=== PATIENT | female | born 1995 | race Caucasian/White ===

== ENCOUNTER 2020-01-12 10:40 | Observation (INO) | payer OTHER, MEDICAID, SELFPAY ==
[2020-01-12] VITALS (19 sets, daily range): BP systolic 91–160; BP diastolic 56–89; PULSE 67–108; RESP 12–22; TEMP 36.2–37.4; O2SAT 92–100; BMI 52.9
--- NOTE | 2020-01-12 11:24 | ED_ITS ---
HPI - Skin/Abscess/Foreign Bdy General Chief complaint: Skin/Abscess/Foreign Body Stated complaint: cyst, left side sent by doc Time Seen by Provider: 01/12/20 10:50 Source: patient Mode of arrival: Ambulatory Limitations: no limitations History of Present Illness HPI narrative: 24F nonsmoker asthma patient presents with the chief complaint of a painful red, swollen mass under her left axilla which has been present for the past few days. She denies any fever or shaking chills. She denies any history of prior skin infections. She was seen and evaluated as an outpatient and had an ultrasound demonstrating what appeared to be an abscess within atypical central core. She was at her primary care provider's office who then consulted with our on-call general surgeon and was instructed to present to the emergency department for evaluation. Her pain is worse with motion and improves with rest. She denies other symptoms and is otherwise well and free of complaint MD complaint: abscess/boil Onset (ago): day(s) Tetanus up to date: yes Location: chest Severity: moderate Quality: aching Pain Consistency: constant Relieving factors: none Exacerbating factors: palpation Context: none Associated symptoms: denies other symptoms Treatments prior to arrival: antibiotic Related Data Home Medications Medication Instructions Recorded Confirmed PNV cmb#95-ferrous fumarate-FA 1 tab PO DAILY 01/12/20 01/12/20 [] albuterol sulfate 1 inh INHALATION PRN PRN 01/12/20 01/12/20 doxycycline hyclate 100 mg PO BID 01/12/20 01/12/20 Allergies Allergy/AdvReac Type Severity Reaction Status Date / Time latex Allergy Verified 01/12/20 11:10 oxycodone Allergy Dizziness Verified 01/12/20 11:10 Sulfa (Sulfonamide Allergy Rash Verified 01/12/20 11:10 Antibiotics) Review of Systems Constitutional Constitutional: Denies chills, Denies fatigue, Denies fever(s), Denies frequent falls, Denies lethargy and Denies weakness Eyes Eyes: Denies change in vision, Denies eye discharge, Denies irritation and Denies loss of vision ENT Ears, Nose, Mouth, and Throat: Denies change in voice, Denies dizziness, Denies neck pain, Denies sore throat and Denies throat swelling Cardiovascular Cardiovascular: Denies chest pain, Denies irregular heart rhythm, Denies lightheadedness, Denies palpitations, Denies dyspnea, Denies dyspnea on exertion and Denies orthopnea Respiratory Respiratory: Denies cough, Denies dyspnea, Denies dyspnea on exertion and Denies wheezing Gastrointestinal Gastrointestinal: Denies abdominal pain, Denies change in bowel habits, Denies diarrhea, Denies nausea and Denies vomiting Genitourinary Genitourinary: Denies hematuria, Denies flank pain, Denies urinary incontinence and Denies urinary urgency Musculoskeletal Musculoskeletal: Denies back pain, Denies muscle weakness, Denies neck pain, Denies numbness and Denies tingling Integumentary/Breasts Skin/Breast: Denies pruritus, Reports erythema, Denies rash, Reports skin pain, Reports skin swelling and Denies wounds Neurologic Neurologic: Denies behavioral changes, Denies confusion, Denies dizziness, Denies frequent falls, Denies loss of vision, Denies numbness, Denies tingling and Denies weakness Psychiatric Psychiatric: Denies anxiety, Denies behavioral changes, Denies confusion, Denies depression, Denies homicidal ideation and Denies suicidal ideation Endocrine Endocrine: Denies fatigue, Denies flushing and Denies palpitations Hematologic/Lymphatic Hematologic/Lymphatic: Denies easy bruising Allergic/Immunologic Allergic/Immunologic: Denies urticaria, Denies throat swelling and Denies wheezing Patient History Social History household members: family Smoking Status: Never smoker alcohol intake: never Smoking Status: Never smoker alcohol intake frequency: holidays/special occasions only Substance Use Type: does not use Exam Narrative Exam Narrative: GENERAL: [24] year old patient appears stated age. Well-nou rished, well-developed patient, in mild distress. Anxious HEAD: Atraumatic. Normocephalic. EYES: Pupils equal round and reactive. Extraocular motions intact. No scleral icterus. No injection or drainage. ENT: Nose without bleeding, purulent drainage. Throat without erythema, tonsillar hypertrophy or exudate. Airway patent. NECK: Trachea midline. Non tender CARDIOVASCULAR: Regular rate and rhythm without murmurs, gallops, or rubs. RESPIRATORY: Clear to auscultation. Breath sounds equal bilaterally. No wheezes, rales, or rhonchi. GASTROINTESTINAL: Abdomen soft, non-tender, nondistended. EXTREMITIES: No edema or joint tenderness. BACK: Nontender without deformity or crepitance. No flank tenderness. NEURO: AOx3. SKIN: 2-3 inch erythematous, tender, warm mass with fluctuance in left axilla consistent with abscess. Otherwise, No rash or erythema of visible areas Initial Vital Signs Initial Vital Signs: Vital Signs Temperature 98.4 F 01/12/20 11:05 Pulse Rate 99 H 01/12/20 11:05 Respiratory Rate 18 01/12/20 11:05 Blood Pressure 160/89 H 01/12/20 11:05 Pulse Oximetry 98 01/12/20 11:05 Course Course Course Narrative: Discussion with General surgery early in the evaluation of this case, she was already aware of this patient and plans to see her in the emergency department and taker to the OR for incision and drainage later tonight Orders Ordered: ED Orders 01/12/20 11:35 Basic Metabolic Panel Stat Complete Blood Count AUTO DIFF Stat Lactate (Lactic Acid) Stat 01/12/20 11:50 Blood Culture Stat Albuterol (Ventolin Hfa) 1 puff INH PRN PRN PRN Reason: Shortness Of Breath Albuterol (Ventolin) 2.5 mg INH NOW PRN PRN Reason: Coughing, Wheezing, Dyspnea Fentanyl (Sublimaze) 0 mcg IV Q5MIN PRN PRN Reason: Pain, Severe (7-10) Hydromorphone HCl (Dilaudid) 0 mg IV Q5MIN PRN PRN Reason: Pain, Mild (1-3) Lactated Ringer's (Lactated Ringers) 1,000 mls @ 150 mls/hr IV CONT DAVON Last Admin: 01/12/20 18:03 Dose: 150 mls/hr Documented by: Infusion: 01/12/20 18:03 Dose: 150 mls/hr Documented by: Infusion: 01/12/20 15:44 Dose: 150 mls/hr Documented by: Admin: 01/12/20 13:16 Dose: 150 mls/hr Documented by: SID Lactated Ringer's (Lactated Ringers) 1,000 mls @ 42 mls/hr IV CONT DAVON Lactated Ringer's (Lactated Ringers) 1,000 mls @ 120 mls/hr IV CONT DAVON Ondansetron HCl (Zofran) 4 mg IV NOW PRN PRN Reason: Nausea And Vomiting Discontinued Medications Acetaminophen (Tylenol) 975 mg PO NOW ONE Stop: 01/12/20 17:36 Last Admin: 01/12/20 18:07 Dose: 975 mg Documented by: ARASH Celecoxib (Celebrex) 400 mg PO NOW ONE Stop: 01/12/20 17:36 Last Admin: 01/12/20 18:08 Dose: 400 mg Documented by: ARASH Gabapentin (Neurontin) 300 mg PO NOW ONE Stop: 01/12/20 17:36 Last Admin: 01/12/20 18:08 Dose: 300 mg Documented by: ARASH Vancomycin HCl/Dextrose (Vancomycin) 2,000 mg in 400 mls @ 200 mls/hr IV NOW ONE Stop: 01/12/20 15:01 Last Infusion: 01/12/20 15:44 Dose: 100 mls/hr Documented by: Infusion: 01/12/20 14:15 Dose: 100 mls/hr Documented by: Admin: 01/12/20 13:17 Dose: 200 mls/hr Documented by: SID Scopolamine (Transderm-Scop) 1 patch TOP NOW ONE Stop: 01/12/20 17:36 Last Admin: 01/12/20 18:08 Dose: 1 patch Documented by: ARASH Vital Signs Vital signs: Vital Signs - 8 hr 01/12/20 12:05 01/12/20 13:00 01/12/20 13:30 Pulse Rate 88 67 90 Respiratory Rate 18 20 21 Blood Pressure [Left Wrist] 148/82 H 133/73 132/77 Pulse Oximetry 98 94 98 MDM - Skin/Abscess/Foreign Bdy Lab Data Result diagrams: 01/12/20 11:35 01/12/20 11:35 Labs: Lab Results 01/12/20 01/12/20 01/12/20 Range/Units 11:35 11:35 11:35 WBC 7.9 (4.5-11.0) X10^3/uL RBC 4.84 (4.0-5.2) X10^6/uL Hgb 14.6 (12.0-16.0) g/dL Hct 42.5 (36-46) % MCV 87.7 (80-100) fL MCH 30.2 (26-34) PG MCHC 34.4 (30-36) % RDW 12.4 (11.6-14.8) % Plt Count 244 (150-400) X10^3/uL Neut % (Auto) 71.3 (50-75) % Lymph % (Auto) 22.0 L (25-40) % [place] % (Auto) 5.0 (3-14) % Eos % (Auto) 1.3 L (2-4) % Baso % (Auto) 0.4 (0-2) % Neut # (Auto) 5600 (7236-0233) /uL Lymph # (Auto) 1700 (4741-9552) /uL [place] # (Auto) 400 (0-900) /uL Eos # (Auto) 100 (0-450) /uL Baso # (Auto) 0 (0-100) /uL Sodium 142 (137-145) mmol/L Potassium 3.9 (3.4-5.1) mmol/L Chloride 104 (98-107) mmol/L Carbon Dioxide 27 (22-32) mmol/L BUN 14 (7-17) mg/dL Creatinine 0.70 (0.52-1.04) mg/dL Estimated GFR > 60.0 (>60) mL/min BUN/Creatinine Ratio 20.0 (6-22) Glucose 106 H (70-100) mg/dL Lactate 1.0 (0.7-2.1) mmol/L Calcium 10.1 (8.4-10.2) mg/dL Point of Care Testing Test Results Negative Urine Dip Bedside Urine Glucose Negative Bedside Urine Bilirubin - Negative Bedside Urine Ketone - Negative Urine Specific [place] 1.010 Bedside Urine Occult Blood +/- Bedside Urine pH 6.5 Bedside Urine Urobilinogen - Negative Bedside Urine Nitrite - Negative Bedside Urine Leukocytes - Negative Esterase Discharge Plan Departure Patient Disposition: Admitted as Observation Clinical Impression: Abscess of axilla Discharge Date/Time: 01/12/20 15:43 Admit Date/Time: 01/12/20 13:35 Admit Provider: Marian Ariza
[2020-01-12 11:51] LABS: Add Manual Diff / Slide Review NO; Basophils Absolute Auto 0 /uL (0-100); Basophils Percent Auto 0.4 % (0-2); Eosinophils Absolute Auto 100 /uL (0-450); Eosinophils Percent Auto 1.3 % (2-4); Hematocrit 42.5 % (36-46); Hemoglobin 14.6 g/dL (12.0-16.0); Lymphocytes Absolute Auto 1700 /uL (1100-4500); Mean Corpuscular HGB Conc 34.4 % (30-36); Mean Corpuscular Hemoglobin 30.2 PG (26-34); Mean Corpuscular Volume 87.7 fL (80-100); Monocytes Absolute Auto 400 /uL (0-900); Neutrophils Absolute Auto 5600 /uL (1500-7000); Neutrophils Percent Auto 71.3 % (50-75); Platelet Count 244 X10^3/uL (150-400); Red Blood Cell Count 4.84 X10^6/uL (4.0-5.2); Red Cell Distribution Width 12.4 % (11.6-14.8); White Blood Cell Count 7.9 X10^3/uL (4.5-11.0)
[2020-01-12 12:06] LABS: Blood Urea Nitrogen 14 mg/dL (7-17); Calcium 10.1 mg/dL (8.4-10.2); Carbon Dioxide 27 mmol/L (22-32); Chloride 104 mmol/L (98-107); Estimated Glomerular Filt Rate > 60.0 mL/min (>60); Glucose 106 mg/dL (70-100); HEMOLYSIS < 15 (0-50); Potassium 3.9 mmol/L (3.4-5.1); Sodium 142 mmol/L (137-145)
--- NOTE | 2020-01-12 12:54 | P.HP_ITS ---
History of Present Illness History of Present Illness Date Patient Seen: 01/12/20 Time Patient Seen: 12:55 Chief complaint: cyst, left side sent by doc Narrative: This is a 24 yo woman with morbid obesity, POTS syndrome, history of appendectomy and c section, presents with one week of left axillary cellulitis and abscess. The patient says it started as a small bump, like a pimple. She says she gets these sometimes, but this one became larger quickly and swelled into a lump. US from OSH showed a fluid collection with debris in it. The patient got a shot of Rocephin at her doctor's office two days ago, and has been on Doxycycline for the past two days. They duarte a line around the cellulitis on Wednesday. It increased on , but has begun to recede today. The cyst is still large and tender, with surrounding erythema and ecchymoses. The patient denies fevers, nausea, vomiting. She is feeling a bit light headed, as she tends to when she is dehydrated. ROS: As per HPI; Thirteen system review is otherwise negative other than as mentioned below and in HPI. PE: GENERAL: Alert, comfortable, morbidly obese. Appears stated age. Answers que stions promptly and appropriately. Vital signs noted. HENT: Normocephalic, atraumatic. Hearing intact. Oral mucosa is pink and moist. EYES: Conjunctiva pink, sclera white, no periorbital swelling. CARDIOVASCULAR: Regular rate. No pedal edema. RESPIRATORY: Non-tachypneic, breathing comfortably on room air. GASTROINTESTINAL: Abdomen soft and non-distended Left axilla: 4cm x 4cm tender fluctuant mass with overlying erythema and ecchymoses GENITALURINARY: No flank tenderness. MUSCULOSKELETAL: Equal tone and mass bilaterally. SKIN: Warm, dry, soft, appropriate color for ethnicity. No other lesions, rashes, or wounds. NEURO: Alert and Oriented X 3. No gross sensory deficits, or cognitive issues. PSYCH: Appropriate affect and mood. Patient History Family & Social History Safety & Behavioral: Feels Safe in Current Yes Environment Tobacco & Substance use: Smoking Status Never smoker alcohol intake frequency holiday/special occasion Substance Use Type does not use Meds Home Medications and Allergies Home Medications Medication Instructions Recorded Confirmed Type PNV cmb#95-ferrous fumarate-FA 1 tab PO DAILY 01/12/20 01/12/20 History [] albuterol sulfate 1 inh INHALATION PRN PRN 01/12/20 01/12/20 History doxycycline hyclate 100 mg PO BID 01/12/20 01/12/20 History Allergies Allergy/AdvReac Type Severity Reaction Status Date / Time latex Allergy Verified 01/12/20 11:10 oxycodone Allergy Dizziness Verified 01/12/20 11:10 Sulfa (Sulfonamide Allergy Rash Verified 01/12/20 11:10 Antibiotics) Exam Vital Signs (past 8 hours): - 01/12/20 11:05 01/12/20 12:05 Temperature 98.4 F Pulse Rate 99 H 88 Respiratory Rate 18 18 Blood Pressure 160/89 H Blood Pressure [Left Wrist] 148/82 H Pulse Oximetry 98 98 Oxygen Delivery Method Room Air Objective Imaging US: Radiologist's impression: 3 x 3 x 1cm fluid collection with solid debris in it Labs Result Diagrams: 01/12/20 11:35 01/12/20 11:35 Labs: Laboratory Results - last 24 hr 01/12/20 01/12/20 01/12/20 11:35 11:35 11:35 WBC 7.9 RBC 4.84 Hgb 14.6 Hct 42.5 MCV 87.7 MCH 30.2 MCHC 34.4 RDW 12.4 Plt Count 244 Neut % (Auto) 71.3 Lymph % (Auto) 22.0 L [place] % (Auto) 5.0 Eos % (Auto) 1.3 L Baso % (Auto) 0.4 Neut # (Auto) 5600 Lymph # (Auto) 1700 [place] # (Auto) 400 Eos # (Auto) 100 Baso # (Auto) 0 Sodium 142 Potassium 3.9 Chloride 104 Carbon Dioxide 27 BUN 14 Creatinine 0.70 Estimated GFR > 60.0 BUN/Creatinine Ratio 20.0 Glucose 106 H Lactate 1.0 Calcium 10.1 Assessment & Plan Assessment and plan (1) Morbid obesity: Current visit: Yes Status: Acute (2) Axillary abscess: Current visit: Yes Status: Acute (3) Asthma: Problem details: Continue home inhaler; pt has suspected AUGUSTO, but has not been able to do sleep study due to having a young child. Current visit: Yes Status: Acute Assessment & Plan narrative: This is a 24 yo with POTS, morbid obesity, asthma, and a left axillary abscess. We will plan to I and D it in the OR this afternoon. Risks and benefits of the procedure were discussed including risk of bleeding, infection, damage to nearby structures, prolonged healing, need for wound care and packing, need for additional procedures. Plan: NPO IV fluids IV Vanc OR for I and D this PM
[2020-01-12] MEDS: LACTATED RINGERS 1,000 ML 150 ML IV ×2 (13:16→18:03)
[2020-01-12] MEDS: VANCOMYCIN 2,000 MG/400 ML PIGGYBACK 200 MG IV (13:17)
--- NOTE | 2020-01-12 14:14 | PC.NURSE ---
Pt called saying she was having itchy scalp from IV meds, assessed pt, no rash or discoloration noted. Dr. Sears aware, no new orders recieved.
[2020-01-12] MEDS: ACETAMINOPHEN 325 MG TABLET 975 MG PO (18:07)
[2020-01-12] MEDS: CELECOXIB 200 MG CAPSULE 400 MG PO (18:08)
[2020-01-12] MEDS: GABAPENTIN 300 MG CAPSULE PO (18:08)
[2020-01-12] MEDS: SCOPOLAMINE 1 PATCH TOP (18:08)
[2020-01-12] MEDS: BUPIVACAINE 0.25% W/ EPI 30 ML VIAL INJ (19:06)
--- NOTE | 2020-01-12 19:07 | SUR.OPER ---
Supine on padded OR bed, head on pillow, arms secured on padded arm boards at <90 degrees abduction, legs uncrossed, safety belt at thigh, tape over blanket over lower legs.
--- NOTE | 2020-01-12 19:32 | PM.OP.1 ---
Operative Date/Time/Diagnoses Date of procedure: 01/12/20 Time of procedure: 19:33 Pre-op diagnosis: Left axillary abscess Post-op diagnosis: same Procedure & Clinicians Procedure: Incision and debridement of left axillary abscess Same procedure as scheduled: Yes Indications: Left axillary abscess Surgeon: Marian Ariza Click Yes if Unassisted: Yes Anesthesia Type: General Operative Notes Findings: Copious purulent material with some solid material sent for culture; abscess cavity 3cm x 4cm Closure Type: primary (Nylon suture, skin closed over sergio drain) Specimen(s): other (Abscess fluid, tissue for culture) Estimated Blood Loss (mL): 1 Blood products transfused: none Procedure in detail: The patient was brought into the operating room, and placed supine on the OR table. Sequential compression devices were placed on both legs and turned on. Appropriate pre operative antibiotic was given. General anesthesia was induced and the patient was intubated with an LMA by Dr. Donnelly. The left axilla and chest wall were prepped and draped in sterile fashion. Surgical time out was completed. Local anesthetic was given in the skin overlying the abscess, and a 6cm transverse incision was made with a 15 blade in the anesthetized area. Copious purulent fluid poured out and was cultured. The abscess cavity was explored, and was found to be about 3cm x 4cm x 2cm deep. The lining of the cavity and some solid material from within the abscess were sent for tissue culture. The abscess cavity was then irrigated and the remaining sloughed lining was debrided until clean, well perfused fat tissue was seen. Hemostasis was established using cautery and pressure. Additional local anesthetic was injected into the skin and subcutaneous fat. 3-0 Nylon suture was used to close the skin loosely over a 1/4 inch sergio drain. 4x4 gauze and paper tape were used to cover the wound and secure the dressing in place. Needle, sponge and instrument counts were correct at the end of the procedure. The patient tolerated the procedure well. She was then awakened from anesthesia and extubated. She was transferred to PACU in stable condition. Post op debriefing was conducted. Complications: none Post-operative Condition: stable Disposition: PACU
[2020-01-12] MEDS: ALBUTEROL 2.5 MG/3 ML NEB (ADULT) INH (19:33)
--- NOTE | 2020-01-12 19:34 | SUR.PHASEI ---
Patient reported chest heaviness and pain. Dr. Donnelly notified. Albuterol neb started per .
--- NOTE | 2020-01-12 19:42 | PC.NURSE ---
Addendum entered by Hanna Orona R.N. 01/12/20 23:56: Pt reports h/o anxiety with prescribed med pt states has not yet taken. Pt expresses anxiety re blood clots, small bubbles in iv tubing, states this is first night away from toddler as spouse is rooming in with pt. Pt does state feels chest heaviness could be anxiety. Pt reports pain well controlled left axilla. Taking oral foods and fluids well. Has voided in bathroom with MEMORIAL DESIGNER assistance. Pt does report after discussion with this headline writer and reassurance re expressed concerns, chest heaviness improved. Vital signs remain stable as recorded. IV Vanco infusing as ordered. Addendum entered by Hanna Orona R.N. 01/12/20 20:30: Per report from [employer], pt experienced chest pain in PACU and anesthesia was made aware. Pt received albuterol treatment with improvement. Pt admits to same upon arrival to floor. Rates chest and left axilla pain 3-4/10. Ice to left axilla with bulky dressing dry and intact. Pt's room air sats 96%. Elevated head of bed and pt provided with food and fluids as per request. Toradol to manage pain. Pt has scopolamine patch behind right ear. Admits to slight dizziness, but denies nausea. Original Note: Pt to room 209 from E.R. @ beginning of shift. Awake, alert, conversant, Admission assessment completed by joanie RN, Abby. Pt removes jewelry and hands to spouse prior to leaving for surgery @ 1730. Pt has large extended family present in room. Pt becomes tearful prior to being transported to holding area for surgery. O.R. nurse does excellent job reassuring pt and calming pt prior to transport. Pt voided prior to transport.
--- NOTE | 2020-01-12 19:48 | SUR.PHASEI ---
Report called to
--- NOTE | 2020-01-12 20:10 | SUR.PHASEI ---
Patient transferred to the floor. Report given to Hanna. VS stable, lt axilla dressing CDI. IV saline locked. Glasses with patient.
[2020-01-12] MEDS: KETOROLAC 30 MG/ML VIAL IV (20:18)
[2020-01-12] MEDS: VANCOMYCIN 1,500 MG/300 ML FROZ.PIGGY 200 MG IV (23:48)
[2020-01-13] VITALS (7 sets, daily range): BP systolic 107–123; BP diastolic 43–75; PULSE 53–79; RESP 16–18; TEMP 36.2–36.8; O2SAT 96–99
[2020-01-13] MEDS: LACTATED RINGERS 1,000 ML 150 ML IV ×2 (02:54→23:03)
[2020-01-13] MEDS: VANCOMYCIN 1,500 MG/300 ML FROZ.PIGGY 200 MG IV ×2 (07:17→14:22)
[2020-01-13 07:20] LABS: Add Manual Diff / Slide Review NO; Basophils Absolute Auto 0 /uL (0-100); Basophils Percent Auto 0.1 % (0-2); Eosinophils Absolute Auto 0 /uL (0-450); Hematocrit 38.5 % (36-46); Hemoglobin 13.2 g/dL (12.0-16.0); Lymphocytes Absolute Auto 1200 /uL (1100-4500); Lymphocytes Percent Auto 10.2 % (25-40); Mean Corpuscular HGB Conc 34.2 % (30-36); Mean Corpuscular Hemoglobin 30.1 PG (26-34); Monocytes Absolute Auto 300 /uL (0-900); Monocytes Percent Auto 2.3 % (3-14); Neutrophils Absolute Auto 10000 /uL (1500-7000); Neutrophils Percent Auto 87.4 % (50-75); Platelet Count 255 X10^3/uL (150-400); Red Blood Cell Count 4.38 X10^6/uL (4.0-5.2); Red Cell Distribution Width 12.3 % (11.6-14.8); White Blood Cell Count 11.5 X10^3/uL (4.5-11.0)
[2020-01-13] MEDS: ENOXAPARIN 40 MG/0.4 ML SYRINGE SUBCUT ×2 (08:00→20:55)
--- NOTE | 2020-01-13 12:20 | CM.DANOTE ---
DCP/Assessment: Reviewed chart. Patient is a 24yr old female admitted to I.H. from MD office with left sided cyst. Admitting MD is surgeon/Dr. Ariza. PCP is Birgit Stanley. Primary payor is 1)[employer] 2)[employer]. Met with patient explained CM/SW role. Patient alert and oriented at time of visit, family at bedside. Patient hopeful that she will get to go home today. Patient resides with spouse and 2yr old son. Patient denies any d/c planning needs and reports that she is completely I in all ADL's. P: Home when medically stable. CHERRY Johns Discharge Planning/Care Management CM Discharge Assessment Start: 01/13/20 12:18 Freq: Status: Active Protocol: Document 01/13/20 12:18 KJS (Rec: 01/13/20 12:20 KJS [id number]) Discharge Planning Assessment Assigned [employer] CHERRY Johns Contact Information Triston Mcmanus (spouse) [phone] Advance Directives? No History Provided By Patient,Family Member, Significant Other,Medical Record Prior Living Arrangements House Household Members family Type of transporation used prior to Drives own vehicle admit Independent with ADL's Yes Is patient alert and oriented? Yes Caregiver for Another Yes: Has 2yr old son Barriers to Discharge No Discharge Plan Home Transportation Arrangement Family to provide transport. Referrals Initiated None needed Whiteboard Updated in Patient Room with Yes name and ext. # of [employer] Office Review Status In Process Next Review Type Continued Stay Review
--- NOTE | 2020-01-13 12:48 | P.PN_ITS ---
Subjective Subjective Date Patient Seen: 01/13/20 Time Patient Seen: 12:49 Interval history: The patient is a woman who had an incision and drainage of a left axillary abscess. She states today 1 IO asked her and after I had looked at her wound that she has been having chest pressure often on since the operation. She says she has asthma. But she does not feel tight. The patient also says she has POTS syndrome usually has a resting tachycardia but has been low. She also says after I changed her dressing that she is becoming jittery and anxious. Exam Vital Signs (past 8 hours): - 01/13/20 06:21 01/13/20 07:45 01/13/20 08:00 Temperature 97.2 F L 98.0 F Pulse Rate 62 69 76 Respiratory Rate 16 16 16 Blood Pressure 107/43 L 120/67 Pulse Oximetry 97 96 96 Oxygen Delivery Method Room Air Oxygen Flow Rate 0 Narrative Exam Narrative: Morbidly obese young woman. Lungs are clear to auscultation. I hear no rales rhonchi or wheezing. Heart regular rate and rhythm. I do not appreciate a murmur gallop. Her axilla has a sutured wound with a drain coming out of it. The drain is sewed in. There is some mild cellulitis around the wound.(patient states it feels much better than yesterday) Objective Labs Result Diagrams: 01/13/20 06:15 01/12/20 11:35 Labs: Laboratory Results - last 24 hr 01/13/20 06:15 WBC 11.5 H RBC 4.38 Hgb 13.2 Hct 38.5 MCV 88.0 MCH 30.1 MCHC 34.2 RDW 12.3 Plt Count 255 Neut % (Auto) 87.4 H Lymph % (Auto) 10.2 L [place] % (Auto) 2.3 L Eos % (Auto) 0.0 L Baso % (Auto) 0.1 Neut # (Auto) 56376 H Lymph # (Auto) 1200 [place] # (Auto) 300 Eos # (Auto) 0 Baso # (Auto) 0 Assessment & Plan Post-op Postoperative Procedures: Procedures Operation Date: 01/12/20 17:30 Actual Procedures Side Surgeon p Axillary Dissection Left Marian Ariza MD Postoperative status narrative: Vague chest pain symptoms. Because of the patient's morbid obesity will perform an EKG, treat her for reflux, and give her an anxiolytic. I think it is highly unlikely that she is having cardiac related chest pain and I suspect this is anxiety or reflux related. She is not tachycardic and not short of breath so I think it is also unlikely as she had a PE. Postoperative plan narrative: EKG. Mazulemax. Zantac. Ativan. Will follow. I a.m. wondering if the symptoms are related to the fact that ice that she can probably go home today, which might be the source of anxiety for her. Still, I want to rule out any other significant pathology.
[2020-01-13] MEDS: raNITIdine 150 MG CAPSULE 300 MG PO (12:51)
[2020-01-13] MEDS: MAG HYDROX/ALUM/SIMETH 30 ML UDC PO (12:51)
[2020-01-13] MEDS: LORazepam 2 MG/ML INJ 1 MG IV (12:59)
[2020-01-13] MEDS: GABAPENTIN 300 MG CAPSULE PO ×2 (14:22→20:55)
--- NOTE | 2020-01-13 15:55 | PC.NURSE ---
Addendum entered by Dora Verma R.N. 01/13/20 21:24: Pt has had uneventful evening. Denies discomfort. IVF continue as per orders. Axilla dsg w/small shadow drainage Call light w/in reach, pt calls appropriately for needs. Continue as per orders. Original Note: Pt awake, visiting w/family. Denies discomfort at this time. Lungs clear, SpO2 98% RA Dsg to left axilla CDI IV of LR @ 150ccc/hr via pump infusing into the RAC w/o incidence. Stable post op course. Call lgiht w/in reach, pt calls appropriately for needs.
[2020-01-13] MEDS: CEFAZOLIN VIAL 3 GM in SODIUM CHLORIDE 0.9% 100 ML 200 ML IV (16:36)
[2020-01-13] MEDS: CEFAZOLIN VIAL 3 GM in SODIUM CHLORIDE 0.9% 100 ML IV (22:57)
[2020-01-13] MEDS: VANCOMYCIN 1,500 MG/300 ML FROZ.PIGGY 100 MG IV (23:57)
[2020-01-14 00:09] VITALS: BP 120/74; PULSE 52; RESP 16; TEMP 36.1; O2SAT 99
[2020-01-14 05:58] VITALS: BP 107/51; PULSE 63; RESP 16; TEMP 35.9; O2SAT 97
[2020-01-14 06:18] LABS: Add Manual Diff / Slide Review NO; Basophils Absolute Auto 100 /uL (0-100); Basophils Percent Auto 0.6 % (0-2); Eosinophils Absolute Auto 100 /uL (0-450); Hematocrit 34.8 % (36-46); Hemoglobin 12.1 g/dL (12.0-16.0); Lymphocytes Absolute Auto 3400 /uL (1100-4500); Lymphocytes Percent Auto 35.6 % (25-40); Mean Corpuscular HGB Conc 34.6 % (30-36); Mean Corpuscular Hemoglobin 30.7 PG (26-34); Mean Corpuscular Volume 88.7 fL (80-100); Monocytes Absolute Auto 500 /uL (0-900); Monocytes Percent Auto 5.4 % (3-14); Neutrophils Absolute Auto 5600 /uL (1500-7000); Neutrophils Percent Auto 57.4 % (50-75); Platelet Count 229 X10^3/uL (150-400); Red Blood Cell Count 3.93 X10^6/uL (4.0-5.2); Red Cell Distribution Width 12.9 % (11.6-14.8); White Blood Cell Count 9.7 X10^3/uL (4.5-11.0)
[2020-01-14 07:55] VITALS: BP 104/59; PULSE 60; RESP 16; TEMP 36.1; O2SAT 97
[2020-01-14 08:25] LABS: Vancomycin Trough 17.8 ug/mL (10-20)
[2020-01-14] MEDS: ENOXAPARIN 40 MG/0.4 ML SYRINGE SUBCUT (09:55)
[2020-01-14] MEDS: GABAPENTIN 300 MG CAPSULE PO (09:55)
[2020-01-14] MEDS: VANCOMYCIN 1,500 MG/300 ML FROZ.PIGGY 200 MG IV (10:10)
--- NOTE | 2020-01-14 12:43 | PM.DS.1 ---
History of Present Illness History of Present Illness Date Patient Seen: 01/14/20 Time Patient Seen: 12:43 Chief complaint: cyst, left side sent by doc Narrative: The patient is a woman admitted with an axillary abscess that underwent incision and drainage Discharge Providers Provider Date of admission: 01/12/20 13:35 Discharge Date: 01/14/20 Primary care physician: Birgit Stanley DO Consults: 01/12/20 20:09 Consult to Discharge Planning Routine Comment: Discharge provider: Bi Rachel MD Summary Hospital Course Discharge Diagnosis: Axillary abscess acute left side Morbid obesity with a BMI of 50 to Anxiety disorder requiring treatment acute situational Probable reflux disease chronic Hospital Course: Patient underwent incision and drainage. A drain was left in the wound which was partially closed. She developed chest pressure the following day and an EKG was note was entirely normal. She is concerned because she has a normal heart rate when it is usually fast. The patient received acid suppression medication and and anxiolytic with good effect. Her symptoms were controlled. She was worried the but blood clots but she really showed no signs of any problem in that regard. She was not tachypneic and not tachycardic and was otherwise absolutely normal and this appeared to be her projecting the worst possible cause of her symptoms (her assessment not mine) on the situation. Status at Discharge Cognitive/behavioral status at discharge: oriented Functional status at discharge: independent ambulation Overall status at discharge: patient is back to baseline Time Spent with Patient Time spent: Less than 30 minutes Exam Vital Signs (past 8 hours): - 01/14/20 05:58 Temperature 96.6 F L Pulse Rate 63 Respiratory Rate 16 Blood Pressure 107/51 L Pulse Oximetry 97 Oxygen Delivery Method Room Air Oxygen Flow Rate 0 Objective Labs Result Diagrams: 01/14/20 06:02 01/12/20 11:35 Labs: Laboratory Results - last 24 hr 01/14/20 01/14/20 06:02 07:50 WBC 9.7 RBC 3.93 L Hgb 12.1 Hct 34.8 L MCV 88.7 MCH 30.7 MCHC 34.6 RDW 12.9 Plt Count 229 Neut % (Auto) 57.4 D Lymph % (Auto) 35.6 D Osborne % (Auto) 5.4 Eos % (Auto) 1.0 L Baso % (Auto) 0.6 Neut # (Auto) 5600 Lymph # (Auto) 3400 Osborne # (Auto) 500 Eos # (Auto) 100 Baso # (Auto) 100 Vancomycin Trough 17.8 Discharge Plan Discharge Plan Patient Disposition: Home Discharge comment: You had a large abscess under the skin. It has been completely drained and cleaned out. The fluid and solid material in the abscess were sent for culture. There is no indication of malignancy. The skin is loosely closed with Nylon sutures over a small drain. The sutures and drain will need to be removed over the next 1-3 weeks. I would like to see you in the clinic at [facility] next week on or Wednesday. Please call on Wednesday to make an appointment. You may continue to take your oral antibiotic as prescribed by your PCP until it is gone. Depending on the appearance of your wound and your culture results we may alter your antibiotic regimen next week. Wound care: You may remove the outer dressing and take a shower. Do not submerge the wound in a pool or tub. If the drain falls out, do not attempt to replace it into the wound. Keep a dry dressing on the wound and change it once daily, and when it becomes saturated with fluid draining from the wound. Pain medication: You may take over the counter pain remedies as needed, such as Ibuprofen, Tylenol, Arnica [place], and Lidocaine. Avoid putting any powders, lotions, or ointments on the wound. You may use an ice pack on the area for comfort and to help reduce bruising and swelling. A prescription for antibiotic has been sent to [facility] in [facility]. Discharge orders & Medications Prescriptions: New cephalexin [Keflex] 500 mg capsule 500 mg PO QID Qty: 20 RF: 0 Continued doxycycline hyclate 100 mg tablet 100 mg PO BID RF: 0 albuterol sulfate 90 mcg/actuation Hfa Aerosol Inhaler 1 inh INHALATION PRN PRN (Reason: Shortness Of Breath) RF: 0 PNV cmb#95-ferrous fumarate-FA [] 28 mg iron- 800 mcg Tablet 1 tab PO DAILY RF: 0 Follow up/Referrals: Birgit Stanley DO [Primary Care Provider] - Marian Ariza MD [Physician] - (please call on Wednesday to make an appointment to be seen next .) Diet/Activity/Treatments Diet: Diet as Tolerated Activity: as tolerated. Skin/Wound/Dressing Care Report to your healthcare provider any signs of infection, such as:: chills, fever, night sweats, increased pain, unusual drainage and unusual redness Dressing: You may remove your gauze and shower. Soap and water running over this area will not hurt it. Apply a new dressing after you shower. Clean dressing daily and more frequently if needed. Visit Report/Discharge Packet Instructions: [facility]: Wound Care Discharge Data Primary Care Provider: Birgit Stanley Attending Provider: Marian Ariza Admit Date/Time: 01/12/20 13:35
--- NOTE | 2020-01-14 13:56 | PC.NURSE ---
Discharge Orders for discharge were received. Dressing changed before discharge with teaching and limited dressing supplies given to patient for continued wound care. The patient and family were made aware of the plan for discharge and were agreeable to go. Information, including handouts, were given to the patient including information on diagnosis, signs and symptoms to be aware of, scripts sent to pref. pharmacy with teaching on new medication and follow-up directions. The patient stated understanding of this information and the IV was removed intact. All belongings gathered and accompanied patient. The patient then ambulated to a wheelchair and was wheeled to the main entrance to a private vehicle. At the time of discharge the patient was alert and oriented, with no complaints of chest pain, shortness of breath, nausea, vomiting or other difficulty.
--- NOTE | 2020-01-22 13:34 | PC.NURSE ---
Late entry: Vancomycin stopped 01/14 0400
== END 2020-01-14 13:30 | disposition home or self-care (01) ==
LOC: ED 13:01 → AC 13:35
PROVIDERS: Admitting Provider Surgery; Emergency Provider Emergency Medicine; PCP Family Medicine; Referring Provider Emergency Medicine; Visit Provider Surgery
PROC: (CPT 10060; principal; 2020-01-12 17:30)
DX: L02.412 Cutaneous abscess of left axilla (principal); J45.909 Unspecified asthma, uncomplicated; E66.01 Morbid (severe) obesity due to excess calories; Z68.43 Body mass index [BMI] 50.0-59.9, adult; G89.18 Other acute postprocedural pain; R07.89 Other chest pain; M94.0 Chondrocostal junction syndrome [Tietze]
CPT/HCPCS: 10060; 36415; 71046; 80048; 80053; 80202; 81003; 81025; 82962; 83605; 83690; 84484; 85025; 85379; 87040; 87070; 87075; 87077; 87176; 87186; 87205; 93005; 96361; 96365; 96366; 96367; 96372; 96375; 99218; 99281; 99284; G0378; G0379; J0690; J1100; J1650; J1885; J2060; J2250; J2405; J2704; J3010; J7613

== ENCOUNTER 2020-01-14 20:19 | Emergency (ER) | payer OTHER, MEDICAID, SELFPAY ==
[2020-01-12 16:25] VITALS: BMI 52.9
[2020-01-14 20:36] VITALS: BP 155/91; PULSE 102; RESP 16; TEMP 37; O2SAT 100
--- NOTE | 2020-01-14 20:38 | DI.RAD.S_ITS ---
PROCEDURE: XR CHEST 2V INDICATIONS: chest pain TECHNIQUE: 2 views of the chest were acquired. COMPARISON: None. FINDINGS: Surgical changes and devices: None. Lungs and pleura: Lungs are clear. No pleural effusions or pneumothorax. Mediastinum: Mediastinal contours are normal. Heart size is normal. Bones and chest wall: No suspicious bony abnormalities. Soft tissues appear unremarkable. IMPRESSION: No acute cardiopulmonary disease. Dictated by: Obed Hamilton M.D. on 01/14/2020 at 20:56 Approved by: Obed Hamilton M.D. on 01/14/2020 at 21:01
[2020-01-14 21:01] LABS: Add Manual Diff / Slide Review NO; Basophils Absolute Auto 100 /uL (0-100); Basophils Percent Auto 0.8 % (0-2); Eosinophils Absolute Auto 100 /uL (0-450); Eosinophils Percent Auto 1.7 % (2-4); Hematocrit 39.2 % (36-46); Hemoglobin 13.4 g/dL (12.0-16.0); Lymphocytes Absolute Auto 2700 /uL (1100-4500); Lymphocytes Percent Auto 31.3 % (25-40); Mean Corpuscular HGB Conc 34.1 % (30-36); Mean Corpuscular Hemoglobin 30.4 PG (26-34); Mean Corpuscular Volume 89.1 fL (80-100); Monocytes Absolute Auto 500 /uL (0-900); Monocytes Percent Auto 5.6 % (3-14); Neutrophils Absolute Auto 5200 /uL (1500-7000); Neutrophils Percent Auto 60.6 % (50-75); Platelet Count 247 X10^3/uL (150-400); Red Cell Distribution Width 12.4 % (11.6-14.8); White Blood Cell Count 8.5 X10^3/uL (4.5-11.0)
[2020-01-14 21:10] LABS: Alanine Aminotransferase 13 IU/L (<35); Albumin 4.2 g/dL (3.5-5.0); Albumin Globulin Ratio 1.4 (1.0-2.8); Alkaline Phosphatase 89 U/L (38-126); Aspartate Aminotransferase 19 IU/L (14-36); BUN Creatinine Ratio 21.3 (6-22); Bilirubin Total 0.2 mg/dL (0.2-1.3); Blood Urea Nitrogen 17 mg/dL (7-17); Calcium 9.4 mg/dL (8.4-10.2); Carbon Dioxide 29 mmol/L (22-32); Chloride 105 mmol/L (98-107); Estimated Glomerular Filt Rate > 60.0 mL/min (>60); Globulin 2.9 g/dL (1.7-4.1); Glucose 114 mg/dL (70-100); HEMOLYSIS < 15 (0-50); Lipase 90 U/L (23-300); Potassium 4.3 mmol/L (3.4-5.1); Sodium 142 mmol/L (137-145); Total Protein 7.1 g/dL (6.3-8.2)
[2020-01-14 21:13] LABS: D Dimer < 200 ng/mL (<230)
[2020-01-14 21:22] LABS: Troponin I < 0.012 ng/mL (0.01-0.034)
[2020-01-14 22:15] VITALS: BP 126/73; PULSE 74; RESP 16; O2SAT 100
--- NOTE | 2020-01-14 22:26 | ED_ITS ---
HPI - Chest Pain General Chief Complaint: Chest Pain Stated Complaint: chest pain since Wednesday night Time Seen by Provider: 01/14/20 22:08 Source: patient Mode of arrival: Ambulatory History of Present Illness HPI narrative: Otherwise healthy 24-year-old woman recently discharged from the hospital after a left chest wall/axillary abscess was drained in the operating room. She returns shortly after discharge complaining of chest pain that is worse with movement that feels like a deep pressure that can be reproduced with manipulating her chest wall around the wound and with pressure along costal margins both sides of the sternum. She is concerned that she has a pulmonary embolism and is looking for reassurance Related Data Home Medications Medication Instructions Recorded Confirmed PNV cmb#95-ferrous fumarate-FA 1 tab PO DAILY 01/12/20 01/12/20 [] albuterol sulfate 1 inh INHALATION PRN PRN 01/12/20 01/12/20 doxycycline hyclate 100 mg PO BID 01/12/20 01/12/20 Previous Rx's Medication Instructions Recorded cephalexin [Keflex] 500 mg PO QID #20 cap 01/14/20 Allergies Allergy/AdvReac Type Severity Reaction Status Date / Time latex Allergy Verified 01/12/20 11:10 oxycodone Allergy Dizziness Verified 01/12/20 11:10 Sulfa (Sulfonamide Allergy Rash Verified 01/12/20 11:10 Antibiotics) Review of Systems Review of Systems Narrative: Tachycardia palpitations or tachycardiaDenies ? fever ? cough ? cold ? chills dyspnea, palpitations or tachycardia ? orthopnea ? wheezing ? abdominal pain ? change to bowel or bladder habits ? nausea vomiting ? skin changes ? rashes Patient History Medical History (Updated 01/15/20 @ 01:37 by Shannen Olsen MD) Asthma (Acute) Axillary abscess (Acute) Morbid obesity (Acute) Social History household members: family Smoking Status: Never smoker alcohol intake: never Smoking Status: Never smoker alcohol intake frequency: holidays/special occasions only Substance Use Type: does not use Exam Narrative Exam Narrative: General: Alert appropriate in no acute distress Respiratory: Able to speak in full sentences, no obvious respiratory distress. Surgical site in the left axillary area is well dressed, clean without evidence of recurring abscess or cellulitis Cardiac: Regular rate and rhythm without any murmurs Skin: No obvious rashes, warm and dry Neurologic: Grossly intact no obvious asymmetries or abnormalities Psych, appropriate insight and affect, cooperative Initial Vital Signs Initial Vital Signs: Vital Signs Temperature 98.6 F 01/14/20 20:36 Pulse Rate 102 H 01/14/20 20:36 Respiratory Rate 16 01/14/20 20:36 Blood Pressure 155/91 H 01/14/20 20:36 Pulse Oximetry 100 01/14/20 20:36 Course Orders Ordered: ED Orders 01/14/20 20:38 Chest [XR chest 2V] Stat 01/14/20 20:41 EKG-12 Lead Stat 01/14/20 20:48 Complete Blood Count AUTO DIFF Stat Comprehensive Metabolic Panel Stat D Dimer Stat Lipase Stat Troponin I Stat Vital Signs Vital signs: Vital Signs - 8 hr 01/14/20 20:36 01/14/20 22:15 Temperature 98.6 F Pulse Rate 102 H 74 Respiratory Rate 16 16 Blood Pressure 155/91 H Blood Pressure [Right Arm] 126/73 Pulse Oximetry 100 100 MDM - Chest Pain Medical Records Data Attestation: I reviewed the patient's medical records. Lab Data Attestation: I reviewed the patient's lab results. Result diagrams: 01/14/20 20:48 01/14/20 20:48 Labs: Lab Results 01/14/20 01/14/20 01/14/20 Range/Units 20:48 20:48 20:48 WBC 8.5 (4.5-11.0) X10^3/uL RBC 4.40 (4.0-5.2) X10^6/uL Hgb 13.4 (12.0-16.0) g/dL Hct 39.2 (36-46) % MCV 89.1 (80-100) fL MCH 30.4 (26-34) PG MCHC 34.1 (30-36) % RDW 12.4 (11.6-14.8) % Plt Count 247 (150-400) X10^3/uL Neut % (Auto) 60.6 (50-75) % Lymph % (Auto) 31.3 (25-40) % [place] % (Auto) 5.6 (3-14) % Eos % (Auto) 1.7 L (2-4) % Baso % (Auto) 0.8 (0-2) % Neut # (Auto) 5200 (7823-3583) /uL Lymph # (Auto) 2700 (8245-5523) /uL [place] # (Auto) 500 (0-900) /uL Eos # (Auto) 100 (0-450) /uL Baso # (Auto) 100 (0-100) /uL D-Dimer < 200 (<230) ng/mL Sodium 142 (137-145) mmol/L Potassium 4.3 (3.4-5.1) mmol/L Chloride 105 (98-107) mmol/L Carbon Dioxide 29 (22-32) mmol/L BUN 17 (7-17) mg/dL Creatinine 0.80 (0.52-1.04) mg/dL Estimated GFR > 60.0 (>60) mL/min BUN/Creatinine Ratio 21.3 (6-22) Glucose 114 H (70-100) mg/dL Calcium 9.4 (8.4-10.2) mg/dL Total Bilirubin 0.2 (0.2-1.3) mg/dL AST 19 (14-36) IU/L ALT 13 (<35) IU/L Alkaline Phosphatase 89 (38-126) U/L Troponin I < 0.012 (0.01-0.034) ng/mL Total Protein 7.1 (6.3-8.2) g/dL Albumin 4.2 (3.5-5.0) g/dL Globulin 2.9 (1.7-4.1) g/dL Albumin/Globulin Ratio 1.4 (1.0-2.8) Lipase 90 (23-300) U/L MDM Narrative Medical decision making narrative: Labs are reassuring including a negative D- dimer. No evidence for acute coronary syndrome or pulmonary embolism. The lateral chest pain is absolutely related to the surgical site and the chest pressure of which she complains is absolutely reproducible with manipulation of the sternum. She is safe for home discharge at this time Discharge Plan Departure Patient Disposition: Home Clinical Impression: Chest wall pain following surgery, Acute costochondritis Discharge Date/Time: 01/14/20 23:12 Instructions: DI for Costochondritis Activity Restrictions/Additional Instructions: Thank you for coming in today. You are having some chest wall pain from around your wound. You are also having some costal chondritis pain and I suspect that is from the positioning that you are in while your sleep for your procedure. There is no evidence of a heart attack, infection, collapsed lung, blood clot in your lungs or other life-threatening issues. Both the chest wall pain and the costal chondritis pain respond nicely to ibuprofen and Tylenol. Neither are life-threatening and both will resolve spontaneously. I hope you heal quickly. Prescriptions: No Action doxycycline hyclate 100 mg tablet 100 mg PO BID RF: 0 albuterol sulfate 90 mcg/actuation Hfa Aerosol Inhaler 1 inh INHALATION PRN PRN (Reason: Shortness Of Breath) RF: 0 PNV cmb#95-ferrous fumarate-FA [] 28 mg iron- 800 mcg Tablet 1 tab PO DAILY RF: 0 cephalexin [Keflex] 500 mg capsule 500 mg PO QID Qty: 20 RF: 0 Referrals: Birgit Stanley DO [Primary Care Provider] -
== END 2020-01-14 23:12 | disposition home or self-care (01) ==
PROVIDERS: Emergency Provider Emergency Medicine; PCP Family Medicine
DX: G89.18 Other acute postprocedural pain (principal); R07.89 Other chest pain; M94.0 Chondrocostal junction syndrome [Tietze]
CPT/HCPCS: 36415; 71046; 80053; 83690; 84484; 85025; 85379; 93005; 99281

== ENCOUNTER → 2020-05-24 14:28 | Outpatient (CLI) | payer OTHER, MEDICAID, SELFPAY ==
[2020-01-12 16:25] VITALS: BMI 52.9
[2020-05-24 17:24] LABS: Urine N gonorrhoeae NOT DETECTED
[2020-05-24 18:09] LABS: Urine Chlamydia NOT DETECTED
== END ==
PROVIDERS: PCP Family Medicine; Visit Provider Obstetrics & Gynecology
DX: Z34.81 Encounter for supervision of other normal pregnancy, first trimester (principal); Z11.3 Encounter for screening for infections with a predominantly sexual mode of transmission; Z3A.09 9 weeks gestation of pregnancy
CPT/HCPCS: 87491; 87591

== ENCOUNTER → 2020-05-24 14:59 | Outpatient (CLI) | payer OTHER, MEDICAID, SELFPAY ==
[2020-01-12 16:25] VITALS: BMI 52.9
[2020-05-24 16:46] LABS: Appearance Urine UA CLEAR; Bilirubin Urine UA NEGATIVE (NEGATIVE); Color Urine UA YELLOW; Glucose Urine UA NEGATIVE (Negative); Ketones Urine UA NEGATIVE (NEGATIVE); Leukocyte Esterase Urine UA NEGATIVE (NEGATIVE); Nitrite Urine UA NEGATIVE (Negative); Occult Blood Urine UA NEGATIVE (Negative); Protein Urine UA NEGATIVE (Negative); Urobilinogen Urine UA 0.2 E.U./dL (0.2)
[2020-05-24 16:59] LABS: pH Urine UA 5.5 (4.5-8.0)
[2020-05-24 17:04] LABS: Add Manual Diff / Slide Review NO; Basophils Absolute Auto 0 /uL (0-100); Basophils Percent Auto 0.2 % (0-2); Eosinophils Absolute Auto 100 /uL (0-450); Eosinophils Percent Auto 0.8 % (2-4); Hematocrit 39.6 % (36-46); Hemoglobin 13.6 g/dL (12.0-16.0); Lymphocytes Absolute Auto 1700 /uL (1100-4500); Lymphocytes Percent Auto 20.7 % (25-40); Mean Corpuscular HGB Conc 34.3 % (30-36); Mean Corpuscular Hemoglobin 30.6 PG (26-34); Mean Corpuscular Volume 89.1 fL (80-100); Monocytes Absolute Auto 400 /uL (0-900); Monocytes Percent Auto 4.9 % (3-14); Neutrophils Absolute Auto 5900 /uL (1500-7000); Neutrophils Percent Auto 73.4 % (50-75); Platelet Count 215 X10^3/uL (150-400); Red Blood Cell Count 4.44 X10^6/uL (4.0-5.2); Red Cell Distribution Width 12.5 % (11.6-14.8)
[2020-05-24 17:10] LABS: Aspartate Aminotransferase 20 IU/L (14-36); Blood Urea Nitrogen 11 mg/dL (7-17); Estimated Glomerular Filt Rate > 60.0 mL/min (>60); GTT (PREG) 1 Hour PP 50gm Dose 145 mg/dL (76-139); Uric Acid 5.6 mg/dL (2.5-6.2)
[2020-05-24 17:12] LABS: Creatinine Urine Random 81.8 mg/dL; Protein (Total) Urine Random 10 mg/dL (0-12); Protein Creatinine Ratio Urine 0.12 GRAM/24H
[2020-05-24 17:41] LABS: TSH w/ Reflex to FT4 1.25 uIU/mL (0.47-4.68)
[2020-05-25 03:07] LABS: RPR Screen Non Reactive (Non Reactive)
[2020-05-25 08:38] LABS: Varicella IgG Antibody 658 index (Immune >165)
[2020-05-27 18:56] LABS: Hepatitis B Surface Antigen NEGATIVE s/c (NEGATIVE)
[2020-05-27 19:05] LABS: Rubella Antibody IgG 10.5 IU/mL (>15)
[2020-05-27 19:12] LABS: Hep C Virus Ab w/Reflex Quant NEGATIVE s/c (NEGATIVE)
[2020-05-27 19:20] LABS: HIV 1 & 2 Ab/Ag 4th Gen Combo NEGATIVE (NEGATIVE)
== END ==
PROVIDERS: PCP Family Medicine; Referring Provider Obstetrics & Gynecology; Visit Provider Obstetrics & Gynecology
DX: Z34.81 Encounter for supervision of other normal pregnancy, first trimester (principal); Z11.3 Encounter for screening for infections with a predominantly sexual mode of transmission; Z3A.09 9 weeks gestation of pregnancy
CPT/HCPCS: 36415; 80055; 81003; 82570; 82950; 84156; 84443; 84450; 84550; 85025; 86787; 86803; 86850; 86900; 86901; 87086; 87389; 87491; 87591

== ENCOUNTER → 2020-06-04 08:59 | Outpatient (CLI) | payer OTHER, MEDICAID, SELFPAY ==
[2020-01-12 16:25] VITALS: BMI 52.9
[2020-06-04 10:40] LABS: Glucose Fasting Gestational 90 mg/dL (76-95)
[2020-06-04 10:49] LABS: Glucose 1 Hour Gest 151 mg/dL (76-180)
[2020-06-04 12:08] LABS: Glucose 2 Hour Gest 132 mg/dL (76-155)
[2020-06-04 12:24] LABS: Glucose Tol Interp,Gestational INTERPRETATION
[2020-06-04 13:09] LABS: Glucose 3 Hour Gest 83 mg/dL (76-140)
== END ==
PROVIDERS: PCP Obstetrics & Gynecology; Referring Provider Obstetrics & Gynecology; Visit Provider Obstetrics & Gynecology
DX: R73.09 Other abnormal glucose (principal)
CPT/HCPCS: 36415; 82951; 82952

== ENCOUNTER → 2020-07-05 11:48 | Outpatient (CLI) | payer OTHER, MEDICAID, SELFPAY ==
[2020-01-12 16:25] VITALS: BMI 52.9
--- NOTE | 2020-07-05 12:13 | DIET.PN ---
Dietary Progress Note Assessment: 25y F 15w3d c second child referred to nutrition for gestational obesity and elevated 1h GTT (145) Pt checking BP twice daily currently r/t POTS, has fear of needles so not looking forward to checking BG if dx c GD. HT: 65 WT: 324# prepregnancy and today 323.7# BMI: 53 Pt happy she has not gained weight this so far, has been diligent on eating healthy foods, not wanting to crash diet and for baby to be as healthy as possible. Pt was 280# before first , delivered at 310# and quickly lost weight with Keto diet but added in carbs and gained all plus more back. Pt is very worried she will not be able to lose weight after delivery and . Was tested for PCOS several years ago, had difficulty getting and gains weight easily. Pt not experiencing morning sickness but does have food aversions to: eggs, sausage, warm lunchmeat, chicken, salmon, sweet potato was craving sweets first trimester, now not craves tacos- cilantro and ugashik, craving spicy-hot chilis and hot cheetos Usual Day wakes 945am drinks water, makes breakfast for kids (egg, sausage, fruit, toast) 1030am makes toast c butter and turkey phillips for self, handful of blueberries or nectarine for self 1130am drinks 32oz low Sugar gatorade c water (1/2and1/2 mix) hummus c crackers 130Lunch: raw rodriguez peppers, salami, blueberries, apple, munster/provolone cheese slices, occasionally almonds and pistachios then just drinks another 32oz water Sn: protein bar (blueberry one) c water, pistachios Dinner(630-7pm): protein-lean steak, salmon, chicken c brown rice/potato/white rice/occ noodle, 1/2 plate zucchini, broccoli, salad 4th cup water son's bed around 930pm, midnight wakes 5x/n to to urinate has BMs daily Eats out a few times per week: taco truck or [place] Plays with son, soccer in backyard, walking fast, family walk 0.5miles, doing a lot of housework, stairs, less sedentary time Pts is [employer] in [place], working 12hr days, 6d/w right now but have plans for him to take a month off to help c and post-csection care. Labs: 1h GTT 140 H Nutrition Diagnosis: morbid obesity in r/t undesirable food choices and physical inactivity aeb BMI 53, pt reports no intentional activity. Interventions: 1. Using hunger scale, helped acclimate pt to appropriate meal timing and volume for herself, honoring hunger and fullness, trying to eat at 3 and stop at 8, avoid eating when 5. 2. Used plate method to discuss balanced eating. Pt feels she is doing well with this right now when eating at home but more difficult c take out meals. Problem solved asking for more veggies at [employer]/[place], or bringing own raw veggies to include c meal. Pt will consume beans more frequently for great protein/complex carb/soluble fiber source. 3. Educated on insulin resistance in and discussed factors which are helpful. 1. Consistent carb diet 2. physical activity. Plate method chosen for carb regulating at this time, if pt + for GD will f/u c carb counting instructions. Pt is trying to reduce sedintary time and be interactive c her 4yo, however, is not getting any intentional activity. This will make the biggest difference for pt's overall health during and after . Pts barriers include POTS, morbid obesity (BMI 53), and having known sex offender in neighborhood which all reduce her motivation for planned, structured PA. Discussed 10 minute walks after meals as most effective solution for now. Pt agrees to start here. 4. Discussed pt's prior pre-eclampsia and LLE. Nutritionally pt can ensure adequate magnesium in diet (almonds) and adequate protein, as well as 10 minute slow walks throughout the day to help c this. 5. Pt had questions on drinking tea in , educated on herbs to avoid and that green tea is fine. Pt dislikes warm lunchmeat, okay'd pt to heat lunch meat for food safety, then cool on clean plate in fridge before eating for better acceptance. Monitoring/Evaluations: pt to follow up after 28w GTT and would like to see pt to assist c healthy lifestyle reccs.
== END ==
PROVIDERS: PCP Obstetrics & Gynecology; Referring Provider Obstetrics & Gynecology; Visit Provider Obstetrics & Gynecology
DX: O99.212 Obesity complicating pregnancy, second trimester (principal); Z3A.15 15 weeks gestation of pregnancy; Z68.43 Body mass index [BMI] 50.0-59.9, adult; Z71.3 Dietary counseling and surveillance
CPT/HCPCS: 97802

== ENCOUNTER → 2020-08-02 14:42 | Outpatient (CLI) | payer OTHER, SELFPAY ==
[2020-01-12 16:25] VITALS: BMI 52.9
[2020-08-05 19:07] LABS: AFP, Serum 39.9 ng/mL (.); Estriol, Free 1.67 ng/mL (.); Inhibin A, Dimeric 90.24 pg/mL (.); Inhibin A, MoM 0.75 (.); Maternal Ethnicity Caucasian (.); Maternal Weight 323 lbs (.); Number of Fetuses No (.); OSBR Risk 1 IN 6499 (.); Results Report (.); Test Results *Screen Negative* (.); hCG, MoM 0.77 (.); hCG, Serum 12506 mIU/mL (.)
== END ==
PROVIDERS: PCP Family Medicine; Referring Provider Obstetrics & Gynecology; Visit Provider Obstetrics & Gynecology
DX: Z34.82 Encounter for supervision of other normal pregnancy, second trimester (principal); Z3A.19 19 weeks gestation of pregnancy
CPT/HCPCS: 36415; 82105; 82677; 84702; 86336

== ENCOUNTER → 2020-08-06 10:00 | Outpatient (CLI) | payer OTHER, SELFPAY ==
[2020-01-12 16:25] VITALS: BMI 52.9
--- NOTE | 2020-08-06 10:02 | DI.US.S_ITS ---
PROCEDURE: US OB >= 14 WEEKS FETUS INDICATIONS: ANATOMY OUTSIDE/PRIOR DATING DATA: Last menstrual period (LMP): Unknown. LMP-based estimated date of delivery (TAYLOR): Unknown . First dating scan (date and location): 05/06/20 . Estimated date of delivery (TAYLOR) from first dating scan: 12/26/20 . TECHNIQUE: Real-time scanning was performed of the fetus, with image documentation and biometric measurements. Endovaginal scanning: Not performed COMPARISON: [facility], OB <= 14 WEEKS FETUS, 06/21/2020, 14:54. [facility], OB <= 14 WEEKS FETUS, 05/24/2020, 14:49. [facility], OB <= 14 WEEKS FETUS, 05/06/2020, 14:57. [facility], OB <= 14 WEEKS FETUS, 04/29/2020, 16:00. [facility], OB >= 14 WEEKS FETUS, 07/05/2020, 11:43. FINDINGS: General: A single living intrauterine gestation is present. Presentation: Transverse. Placenta: Placental position is anterior , the edge of the placenta measures approximate 1.1 cm from the internal cervical os in keeping with low lying placenta. Amniotic fluid index: 10.2 cm, normal range is 5-24 cm. Largest pocket measures 3.9 cm heart rate: 168 beats per minute. Maternal cervical canal: 3.4 cm long. Normal lower limit is 2.5 cm. biometrics: Biparietal diameter: 4.4 cm, 19 weeks 3 days Head circumference: 16.6 cm, 19 weeks 2 days Abdominal circumference: 15.7 cm, 20 weeks 6 days Femur length: 3.1 cm, 19 weeks 4 days Estimated gestational age from initial scan: 19 weeks 5 days Composite gestational age from present scan: 19 weeks 6 days Estimated weight and percentile: 333 g, 69th percentile Measurement variability for biometric dating: +/- 7 days from 14 weeks to 15 weeks 6 days gestation, +/- 10 days from 16 weeks to 21 weeks 6 days gestation, +/- 2 weeks from 22 weeks to 27 weeks 6 days gestation, +/- 3 weeks for 28 weeks gestation or later. weight reference: 4500 g or EFW >90/95% is considered macrosomia or large for gestational age. EFW <10% is small for gestational age. EFW 5% or less is considered intra-uterine growth restriction. Anatomic survey: Neuro: Not well visualized due to body habitus Nuchal skin fold: Normal at less than 6 mm between 14-21 weeks gestational age. Face: Not well visualized due to body habitus. Spine: Not well visualized Heart: Not well visualized Diaphragm: Diaphragm is intact. Stomach: Left-sided stomach is present. Kidneys: Not well seen. Cord: 3-vessel cord has orthotopic insertion. Bladder: Normal in size. Extremities: All 4 extremities identified. IMPRESSION: Single living intrauterine fetus in transverse presentation demonstrating expected interval growth. Low lying placenta. Recommend follow-up Suboptimal anatomic survey evaluation due to maternal body habitus, of note, intracranial structures, face/lips, nuchal region, spine, heart and kidneys are not well visualized. Recommend follow-up. Dictated by: Antonio Sánchez M.D. on 08/06/2020 at 17:32 Approved by: Antonio Sánchez M.D. on 08/06/2020 at 17:37
== END ==
PROVIDERS: PCP Family Medicine; Referring Provider Obstetrics & Gynecology; Visit Provider Obstetrics & Gynecology
DX: Z34.82 Encounter for supervision of other normal pregnancy, second trimester (principal); Z3A.19 19 weeks gestation of pregnancy
CPT/HCPCS: 76811

== ENCOUNTER → 2020-08-20 12:16 | Outpatient (CLI) | payer OTHER, MEDICAID, SELFPAY ==
[2020-01-12 16:25] VITALS: BMI 52.9
--- NOTE | 2020-08-20 12:17 | DI.US.S_ITS ---
PROCEDURE: US OB FOLLOW UP INDICATIONS: FOLLOW-UP ANATOMY OUTSIDE/PRIOR DATING DATA: Last menstrual period (LMP): Not available. LMP-based estimated date of delivery (TAYLOR): Not available. First dating scan (date and location): 05/06/2020. Estimated date of delivery (TAYLOR) from first dating scan: 12/26/2020 . TECHNIQUE: Real-time scanning was performed of the fetus, with image documentation and biometric measurements. Endovaginal scanning: Not performed COMPARISON: [facility], OB >= 14 WEEKS FETUS, 08/06/2020, 10:43. [facility] OB >= 14 WEEKS FETUS, 07/05/2020, 11:43. [facility] OB <= 14 WEEKS FETUS, 06/21/2020, 14:54. [facility], OB <= 14 WEEKS FETUS, 05/24/2020, 14:49. [facility] OB <= 14 WEEKS FETUS, 05/06/2020, 14:57. FINDINGS: General: A single living intrauterine gestation is present. Presentation: Vertex Placenta: Placental position is anterior without previa. Amniotic fluid index: 13.1 cm, normal range is 5-24 cm; largest pocket 4.1 cm. heart rate: 145 beats per minute. Maternal cervical canal: 5.6 cm long. Normal lower limit is 2.5 cm. biometrics: Not performed. Estimated gestational age from initial scan: 21 weeks 5 days. Measurement variability for biometric dating: +/- 7 days from 14 weeks to 15 weeks 6 days gestation, +/- 10 days from 16 weeks to 21 weeks 6 days gestation, +/- 2 weeks from 22 weeks to 27 weeks 6 days gestation, +/- 3 weeks for 28 weeks gestation or later. weight reference: 4500 g or EFW >90/95% is considered macrosomia or large for gestational age. EFW <10% is small for gestational age. EFW 5% or less is considered intra-uterine growth restriction. Other: The cerebral ventricles, cisterna magnum and cerebellum, face, lips and orbits, spine, heart including 4-chamber view, cardiac outflow tracts, and kidneys are visualized and appear normal. IMPRESSION: 1. A single living intrauterine gestation redemonstrated. 2. Not well-seen anatomic structures on the last exam are visualized on the current exam and are normal. 3. No placenta previa. The inferior margin of placenta is 5.9 cm from the internal os. Dictated by: Obed Hamilton M.D. on 08/20/2020 at 14:52 Approved by: Obed Hamilton M.D. on 08/20/2020 at 16:57
== END ==
PROVIDERS: PCP Family Medicine; Referring Provider Obstetrics & Gynecology; Visit Provider Obstetrics & Gynecology
DX: Z36.2 Encounter for other antenatal screening follow-up (principal); Z3A.21 21 weeks gestation of pregnancy
CPT/HCPCS: 76816

== ENCOUNTER → 2020-08-30 15:32 | Outpatient (CLI) | payer OTHER, MEDICAID, SELFPAY ==
[2020-01-12 16:25] VITALS: BMI 52.9
[2020-08-31 18:07] LABS: Candida species Negative (Negative); Gardnerella vaginalis Negative (Negative); Trichomoas vaginalis Negative (Negative)
== END ==
PROVIDERS: PCP Family Medicine; Visit Provider Obstetrics & Gynecology
DX: Z34.90 Encounter for supervision of normal pregnancy, unspecified, unspecified trimester (principal); N76.0 Acute vaginitis
CPT/HCPCS: 87480; 87510; 87660

== ENCOUNTER → 2020-10-15 14:09 | Outpatient (CLI) | payer OTHER, MEDICAID, SELFPAY ==
[2020-01-12 16:25] VITALS: BMI 52.9
[2020-10-15 15:37] LABS: Hematocrit 35.8 % (36-46); Hemoglobin 12.4 g/dL (12.0-16.0)
[2020-10-15 16:02] LABS: GTT (PREG) 1 Hour PP 50gm Dose 162 mg/dL (76-139)
== END ==
PROVIDERS: PCP Family Medicine; Referring Provider Obstetrics & Gynecology; Visit Provider Obstetrics & Gynecology
DX: Z34.03 Encounter for supervision of normal first pregnancy, third trimester (principal); Z3A.30 30 weeks gestation of pregnancy
CPT/HCPCS: 36415; 82950; 85014; 85018

== ENCOUNTER → 2020-10-25 09:11 | Outpatient (CLI) | payer OTHER, MEDICAID, SELFPAY ==
[2020-01-12 16:25] VITALS: BMI 52.9
[2020-10-25 10:16] LABS: Glucose Fasting Gestational 87 mg/dL (76-95)
[2020-10-25 12:34] LABS: Glucose 1 Hour Gest 169 mg/dL (76-180)
[2020-10-25 12:42] LABS: Glucose Tol Interp,Gestational INTERPRETATION
[2020-10-25 12:49] LABS: Glucose 2 Hour Gest 124 mg/dL (76-155)
[2020-10-25 13:46] LABS: Glucose 3 Hour Gest 109 mg/dL (76-140)
== END ==
PROVIDERS: PCP Family Medicine; Referring Provider Obstetrics & Gynecology; Visit Provider Obstetrics & Gynecology
DX: O99.810 Abnormal glucose complicating pregnancy (principal)
CPT/HCPCS: 36415; 82951; 82952

== ENCOUNTER 2020-11-19 12:23 | Outpatient (CLI) | payer OTHER, MEDICAID, SELFPAY ==
[2020-01-12 16:25] VITALS: BMI 52.9
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
== END 2020-11-19 13:25 | disposition home or self-care (01) ==
LOC: LABOR 12:32 → OB 11-24 11:01
PROVIDERS: PCP Family Medicine; Referring Provider Obstetrics & Gynecology; Visit Provider Obstetrics & Gynecology
DX: O36.8130 Decreased fetal movements, third trimester, not applicable or unspecified (principal); O26.23 Pregnancy care for patient with recurrent pregnancy loss, third trimester; O99.213 Obesity complicating pregnancy, third trimester; E66.01 Morbid (severe) obesity due to excess calories; Z3A.35 35 weeks gestation of pregnancy
CPT/HCPCS: 59025; G0378; G0379

== ENCOUNTER → 2020-11-26 13:30 | Outpatient (CLI) | payer OTHER, MEDICAID, SELFPAY ==
[2020-01-12 16:25] VITALS: BMI 52.9
[2020-11-27 15:25] LABS: Strep Grp B PCR NEG for Grp B Strep
== END ==
PROVIDERS: PCP Family Medicine; Visit Provider Obstetrics & Gynecology
DX: Z34.83 Encounter for supervision of other normal pregnancy, third trimester (principal); Z3A.36 36 weeks gestation of pregnancy
CPT/HCPCS: 87653

== ENCOUNTER → 2020-12-18 11:08 | Outpatient (CLI) | payer OTHER, MEDICAID, SELFPAY ==
[2020-01-12 16:25] VITALS: BMI 52.9
[2020-12-18 12:30] LABS: COVID19 -Nasal RAPID Negative (Negative)
== END ==
PROVIDERS: PCP Family Medicine; Visit Provider Specialist
DX: Z01.812 Encounter for preprocedural laboratory examination (principal); Z20.822 Contact with and (suspected) exposure to COVID-19
CPT/HCPCS: 87635

== ENCOUNTER 2020-12-19 06:01 | Inpatient (IN) | payer OTHER, MEDICAID, SELFPAY ==
[2020-01-12 16:25] VITALS: BMI 52.9
--- NOTE | 2020-12-19 | PATH_ITS ---
[facility] Accession Number: [id number] . 01 Material submitted: . fallopian tube - BILATERAL FALLOPIAN SEGMENTS . 01 Clinical history: . . 02 Diagnosis: Bilateral Fallopian Tube Segments, Bilateral Tubal Ligations: Segments of bilateral fallopian tubes. No evidence of neoplasm. MRV 12/23/2020 1113 Local . 02 Electronically signed: . Pedro Mcqueen MD, PhD, Pathologist NPI- [id number] . 01 Gross description: . The specimen is received in formalin, labeled bilateral fallopian tube segments and consists of two fallopian tube segments measuring 1.6 cm in length by 0.6 cm in diameter each. The serosa is kamara-pink and smooth, and sectioning reveals a stellate lumen measuring 0.2 cm in diameter. The segments are serially sectioned and entirely submitted in cassettes A1-A2. (EA:[id number]) /MRV 12/20/2020 1136 Local . 02 Microscopic: . Complete cross-sections of fallopian tube are seen in each tubular segment submitted. . 02 Pathologist provided ICD-10: Z30.2 . 02 CPT . 004839 Performed at: 01 [facility] [address], [place], [place] [id number] MD Schuyler Alston MD Phone: [phone] Performed at: 02 [facility] [address] [place], [place] [id number] MD Amanda Tolbert MD Phone: [phone]
[2020-12-19 06:26] VITALS: BP 110/68
[2020-12-19 06:49] LABS: Add Manual Diff / Slide Review NO; Basophils Absolute Auto 0 /uL (0-100); Basophils Percent Auto 0.4 % (0-2); Eosinophils Absolute Auto 100 /uL (0-450); Eosinophils Percent Auto 0.5 % (2-4); Hematocrit 37.5 % (36-46); Hemoglobin 12.5 g/dL (12.0-16.0); Lymphocytes Absolute Auto 1800 /uL (1100-4500); Lymphocytes Percent Auto 19.3 % (25-40); Mean Corpuscular HGB Conc 33.3 % (30-36); Mean Corpuscular Hemoglobin 30.3 PG (26-34); Mean Corpuscular Volume 90.9 fL (80-100); Monocytes Absolute Auto 700 /uL (0-900); Neutrophils Absolute Auto 6900 /uL (1500-7000); Neutrophils Percent Auto 72.8 % (50-75); Platelet Count 169 X10^3/uL (150-400); Red Blood Cell Count 4.13 X10^6/uL (4.0-5.2); Red Cell Distribution Width 13.5 % (11.6-14.8); White Blood Cell Count 9.5 X10^3/uL (4.5-11.0)
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
[2020-12-19] MEDS: CEFAZOLIN 2 GM/100 ML FROZ.PIGGY IV ×2 (07:59)
[2020-12-19] MEDS: CEFAZOLIN 1 GM/50 ML FROZ.PIGGY IV (08:05)
--- NOTE | 2020-12-19 08:33 | SUR.OPER ---
Supine on Padded OR bed, head on pillow, safety belt at thigh, arms secured on padded arm boards at <90 degrees abduction. Bump under right buttock. Legs uncrossed with pillow under knees, gel pad to heels, tape over blanket to lower legs.
[2020-12-19] MEDS: LACTATED RINGERS 1,000 ML 100 ML IV (08:41)
[2020-12-19 09:07] VITALS: PULSE 125
--- NOTE | 2020-12-19 09:10 | SUR.OPER ---
FHT 120'S LIVE MALE BORN AT 0836
[2020-12-19 09:28] VITALS: BP 115/63; PULSE 76; RESP 18; TEMP 36.4; O2SAT 97
[2020-12-19 09:33] VITALS: BP 112/64; PULSE 72; RESP 18; O2SAT 97
[2020-12-19 09:45] VITALS: BP 113/66; PULSE 74; RESP 16; TEMP 36.1; O2SAT 97
--- NOTE | 2020-12-19 15:05 | PM.OP.1 ---
Operative Date/Time/Diagnoses Date of procedure: 12/19/20 Time of procedure: 07:45 Pre-op diagnosis: term , history section, desires permanent sterilization Post-op diagnosis: same Procedure & Clinicians Procedure: Repeat section, bilateral tubal ligation Same procedure as scheduled: Yes Indications: History of prior section, 39 week , desires permanent sterilization Surgeon: Neva Avitia Drill Press Operator Numerical Control: Dora Ramirez Anesthesia Type: Spinal Operative Notes Findings: Normal tubes and ovaries. Uterine fundus normal, lower uterine segment notable for significant window extending from site of prior incision to bladder. Closure Type: primary Specimen(s): other (Portions of bilateral fallopian tubes) Applied: catheter Estimated Blood Loss (mL): 500 Blood products transfused: none Procedure in detail: EBL: 500ccs Fluids:1200ccs LR UOP: 200ccs clear yellow urine Findings: Male in cephalic presentation, Apgars 9+9, weight 7#13. Procedures: The patient was taken to the operating room where spinal anesthesia was placed and found to be adequate. She was prepped and draped in the normal sterile fashion in the dorsal supine position with a leftward tilt. A Pfannenstiel skin incision was made with a scalpel and carried through to the underlying layer of fascia. The fascia was incised in the midline and the incision extended laterally with River scissors. The superior aspect of this incision was grasped with Iman clamps, elevated, and the underlying rectus muscles dissected off bluntly and with the curved River scissors. Attention was then turned to the inferior aspect of this incision which, in a similar fashion, was grasped, tented up with the Iman clamps, and the rectus muscles dissected off bluntly and with the curved River scissors. The rectus muscles were then in the midline, and the peritoneum identified, tented up, and entered sharply with Metzenbaum scissors. The peritoneal incision was extended superiorly and inferiorly with good visualization of the bladder. The large Juan Manuel retractor was inserted, and the vesicouterine peritoneum identified, grasped with pickups, and entered sharply with the Metzenbaum scissors. This incision was extended laterally, and the bladder flap created digitally. The lower uterine segment incised in transverse fashion with the scalpel. The uterine incision was bluntly extended laterally. The bladder blade was removed, and the 's head delivered atraumatically with assistance of a vacuum. After 30 seconds of delayed cord clamping, the cord was clamped and cut. The nose and mouth were suctioned as needed with a bulb syringe, and the infant was handed off to awaiting pediatricians. The placenta was then removed spontaneously, and the uterus cleared of all clots and debris. The uterine incision was repaired with 1-0 chromic in a running, locked fashion. The gutters were cleared of all clots and debris. Attention was turned to the left fallopian tube which followed out to the fimbriated end. The isthmus was grasped with a sharonda clamp and elevated, and a knuckle of tube tied off with two loops of 0 plain gut in the modified Elaina method. The knuckle of fallopian tube was trimmed with the Metzenbaum scissors, and the ends cauterized with the Bovie. The same procedure was then performed on the right. Hemostasis was noted at both sites. The bladder flap was closed with 2-0 Vicryl in a running fashion, the peritoneum was closed with 3-0 Vicryl, and the fascia reapproximated with 0 Vicryl in a running fashion. The subcutaneous layer was placed with 3 0 Vicryl in an interrupted fashion and the skin was closed with 4-0 biosyn in a running fashion. The patient tolerated the procedure well. sponge lap and needle counts were correct x2. 3 g of Ancef were given at commencement of the case. The patient was taken to the recovery room in stable condition. Complications: none Post-operative Condition: stable Disposition: PACU Plan for aftercare: Routine postoperative care, with addition of Lovenox at 12 hrs postop given risk factors for VTE.
[2020-12-19] MEDS: KETOROLAC 30 MG/ML VIAL IV ×2 (15:33→20:47)
[2020-12-19] MEDS: diphenhydrAMINE 50 MG/ML VIAL 25 MG IV (16:27)
[2020-12-19] MEDS: ENOXAPARIN 40 MG/0.4 ML SYRINGE SUBCUT (20:47)
[2020-12-20] MEDS: KETOROLAC 30 MG/ML VIAL IV (02:51)
[2020-12-20 06:27] LABS: Add Manual Diff / Slide Review NO; Basophils Absolute Auto 0 /uL (0-100); Basophils Percent Auto 0.3 % (0-2); Eosinophils Absolute Auto 100 /uL (0-450); Eosinophils Percent Auto 0.7 % (2-4); Hematocrit 27.9 % (36-46); Hemoglobin 9.4 g/dL (12.0-16.0); Lymphocytes Absolute Auto 2100 /uL (1100-4500); Lymphocytes Percent Auto 21.1 % (25-40); Mean Corpuscular HGB Conc 33.9 % (30-36); Mean Corpuscular Hemoglobin 30.6 PG (26-34); Mean Corpuscular Volume 90.3 fL (80-100); Monocytes Absolute Auto 700 /uL (0-900); Monocytes Percent Auto 7.1 % (3-14); Neutrophils Absolute Auto 6900 /uL (1500-7000); Neutrophils Percent Auto 70.8 % (50-75); Platelet Count 143 X10^3/uL (150-400); Red Blood Cell Count 3.09 X10^6/uL (4.0-5.2); Red Cell Distribution Width 13.2 % (11.6-14.8); White Blood Cell Count 9.7 X10^3/uL (4.5-11.0)
--- NOTE | 2020-12-20 08:04 | P.PNOB_ITS ---
Subjective - OB Subjective Patient comments: no complaints, pain well controlled and other baby status: doing well feeding status: exclusively breast feeding Narrative: This patient is postop day 1 status post scheduled repeat section and bilateral tubal ligation. Her surgery was uncomplicated, and today she is meeting postoperative goals well. She is ambulating, voiding, has moderate lochia, has good pain control, tolerating p.o., no chest pain or trouble breathing, no leg pain, no PIH complaints. Received prophylactic Lovenox last night, 12 hours postop. Date Patient Seen: 12/20/20 Time Patient Seen: 08:04 Exam Vital Signs (past 8 hours): 99/77, heart rate 69, afebrile Oxygen Delivery Method Room Air Const General: cooperative, healthy appearing and comfortable Resp Effort & Inspection: normal respiratory effort Auscultation: clear to auscultation bilaterally Cardio Rate: regular rate Rhythm: regular rhythm GI Inspection: incision (Clean, dry, covered with Aquacel) and obesity Palpation: soft and No tender Skin General: no rashes or lesions noted Extrem General: normal to inspection (SCDs in place and functioning) Objective Labs Result Diagrams: 12/20/20 06:18 Labs: Laboratory Results - last 24 hr 12/20/20 06:18 WBC 9.7 RBC 3.09 L Hgb 9.4 L Hct 27.9 L MCV 90.3 MCH 30.6 MCHC 33.9 RDW 13.2 Plt Count 143 L Neut % (Auto) 70.8 Lymph % (Auto) 21.1 L [place] % (Auto) 7.1 Eos % (Auto) 0.7 L Baso % (Auto) 0.3 Neut # (Auto) 6900 Lymph # (Auto) 2100 [place] # (Auto) 700 Eos # (Auto) 100 Baso # (Auto) 0 Assessment & Plan Plan day: 1 plan OB: routine postop care Comments: Patient meeting postoperative goals appropriately on postop day 1, discussed discharge tomorrow. All questions answered. Routine postop care. Continue Lovenox until discharge. Time Spent With Patient Time: Total time spent is greater than 50% in coordination of care (as documented) at patient's floor/unit and/or counseling patient: Time with patient: less than 15 minutes
[2020-12-20] MEDS: LANOLIN OINT 7 GM 1 APPLIC TOP (09:14)
[2020-12-20] MEDS: HYDROCODONE/ACET 5/325 TABLET 1 TAB PO (09:15)
[2020-12-20] MEDS: DOCUSATE 250 MG CAPSULE PO (09:15)
[2020-12-20] MEDS: HYDROCODONE/ACET 10/325 TABLET 1 TAB PO ×3 (13:03→21:01)
[2020-12-20] MEDS: ENOXAPARIN 40 MG/0.4 ML SYRINGE SUBCUT (21:01)
[2020-12-21] MEDS: ACETAMINOPHEN 325 MG TABLET 650 MG PO (04:57)
[2020-12-21] MEDS: HYDROCODONE/ACET 10/325 TABLET 1 TAB PO ×2 (04:57→09:35)
--- NOTE | 2020-12-21 09:56 | PM.OBDS.1 ---
Discharge Providers Provider Date of admission: 12/19/20 06:01 Discharge Date: 12/21/20 Primary care physician: Birgit Stanley DO Consults: 12/19/20 10:02 Consult to Protective Signal Superintendent Routine Comment: Discharge provider: Elizabeth Alvarez MD Summary Hospital Course Date Patient Seen: 12/21/20 Time Patient Seen: 09:58 Diagnoses: 39 week gestation with prior section, wish for sterilization Hospital Course: Patient was admitted for repeat low-transverse section with bilateral tubal ligation on 12/19/20. Patient is ambulatory. She is urinating without difficulty. She is passing gas but has not had a bowel movement yet. She denies headaches, scotomata, epigastric pain. She has some discomfort in her upper posterior left leg but no swelling, tenderness with palpation or cords felt. No signs of veins swelling. Patient had a gush of blood last night but is not having the same concern today. Peripartum Data Infant Delivery Method: Section (Repeat) Procedures: Repeat low-transverse section bilateral tubal ligation complications: none Discharge Diagnosis (1) Delivery by section: Status: Acute (2) Sterilization: Status: Acute Time Spent with Patient Time attestation: Total time spent providing and/or coordinating discharge services: Objective Labs Result Diagrams: 12/20/20 06:18 Exam Vital Signs (past 8 hours): Blood pressure 103/70, pulse 76, temperature 98.7? Oxygen Delivery Method Room Air Narrative Exam Narrative: Patient's abdomen is soft, nontender. Uterus is firm, at U, appropriately tender. Dressing is clean, dry, intact. Mild lochia. Extremities without edema and no palpable cords were the patient is concerned about tenderness behind her left upper leg, no swelling of blood vessels. Patient's blood type is O positive. She received Tdap in 3rd trimester. Patient is rubella nonimmune and will be offered the vaccine prior to discharge. Discharge Plan Discharge Plan Patient Disposition: Home Discharge orders & Medications Prescriptions: New hydromorphone [Dilaudid] 2 mg tablet 2 mg PO Q6H PRN (Reason: pain) Qty: 10 RF: 0 docusate sodium 100 mg tablet 100 mg PO BID Qty: 60 RF: 0 Continued cholecalciferol (vitamin D3) 100 mcg (4,000 unit) capsule 100 mcg PO DAILY RF: 0 albuterol sulfate 90 mcg/actuation Hfa Aerosol Inhaler 1 inh INHALATION PRN PRN (Reason: Shortness Of Breath) RF: 0 PNV cmb#95-ferrous fumarate-FA [] 28 mg iron- 800 mcg Tablet 1 tab PO DAILY RF: 0 Discontinued folic acid 1 mg tablet 1 mg PO DAILY Qty: 90 RF: 4 Follow up/Referrals: Neva Avitia MD [Physician] - 1 Week Birgit Stanley DO [Primary Care Provider] - Diet/Activity/Treatments Diet: Regular Activity: Nothing in the vagina for 6 weeks. Avoid lifting more than 10 lbs for 6 weeks. If you have increasing pain, fevers, chills, nausea, headaches, visual changes, chest pain, or any other symptoms or concerns, call or come to the emergency room. Skin/Wound/Dressing Care Dressing: Dressing will be removed in clinic. If it becomes wet in the shower and soaked, it can be gently removed. Visit Report/Discharge Packet Instructions: DI for Discharge Data Primary Care Provider: Birgit Stanley
== END 2020-12-21 12:00 | disposition home or self-care (01) | DRG 785 ==
PROVIDERS: Admitting Provider Obstetrics & Gynecology; PCP Family Medicine; Referring Provider Obstetrics & Gynecology; Visit Provider Obstetrics & Gynecology
PROC: 10D00Z1 Extraction of Products of Conception, Low, Open Approach (ICD-10-PCS; CPT 59514; principal; 2020-12-19 07:45)
DX: O34.219 Maternal care for unspecified type scar from previous cesarean delivery (principal); Z30.2 Encounter for sterilization; Z3A.39 39 weeks gestation of pregnancy; Z37.0 Single live birth; I49.8 Other specified cardiac arrhythmias; K21.9 Gastro-esophageal reflux disease without esophagitis; J45.909 Unspecified asthma, uncomplicated
CPT/HCPCS: 36415; 58605; 59050; 59510; 59514; 85025; 86850; 86900; 86901; J0690; J1200; J1650; J1885; J2250; J2274; J2590

== ENCOUNTER → 2020-12-24 14:16 | Outpatient (CLI) | payer OTHER, MEDICAID, SELFPAY ==
[2020-01-12 16:25] VITALS: BMI 52.9
[2020-12-24 16:51] LABS: Appearance Urine UA CLEAR; Bilirubin Urine UA NEGATIVE (NEGATIVE); Color Urine UA YELLOW; Glucose Urine UA NEGATIVE (Negative); Ketones Urine UA NEGATIVE (NEGATIVE); Leukocyte Esterase Urine UA NEGATIVE (NEGATIVE); Nitrite Urine UA NEGATIVE (Negative); Occult Blood Urine UA 3+ (Negative); Protein Urine UA NEGATIVE (Negative); Urobilinogen Urine UA 0.2 E.U./dL (0.2)
[2020-12-24 17:10] LABS: Bacteria Urine Few (2-10); Culture Indicated Urine Cult Not Indicated; Mucus Urine 2+ (Negative); RBC Urine 30-100/HPF (0-5/HPF); Squamous Epithelial Cell Urine 5-10 /HPF (0-5/HPF); WBC Urine 1-5/HPF (0-5/HPF)
== END ==
PROVIDERS: PCP Family Medicine; Referring Provider Obstetrics & Gynecology; Visit Provider Obstetrics & Gynecology
DX: R39.9 Unspecified symptoms and signs involving the genitourinary system (principal)
CPT/HCPCS: 81001; 87077; 87086; 87186